=== PATIENT | male | born 1945 | race Caucasian/White ===

== ENCOUNTER → 2021-02-21 | Outpatient (CLI) | payer MEDICARE, BC, OTHER ==
--- NOTE | 2021-02-21 11:16 | REP ---
INDICATION: COMPLEX RENAL CYST. COMPARISON: Comparison sonography is been retrieved and is reviewed dated October 11, 2020 from an outside hospital.. TECHNIQUE: Urinary tract sonography. FINDINGS: Scanning at the level of the urinary bladder shows no abnormality. Emptying ureteral jets are observed bilaterally on color Doppler interrogation of the bladder lumen. Renal cortical echogenicity pattern is normal bilaterally and contours are smooth. There is a complex mid to upper pole parapelvic cyst in the right kidney which appears subjectively unchanged when compared with the outside sonographic images from October 11, 2020. This measures 3.8 x 3.7 x 3.7 cm and contains a thin internal septation an a slightly lobulated contour. No soft tissue component is seen. No mass lesion is seen. No renal calculus is observed. There is no evidence of hydronephrosis on either side.. The right kidney measures 11.5 x 6.2 x 5.8 cm. Left renal dimensions are 11.9 x 5.3 x 6.0 cm. IMPRESSION: Slightly complex parapelvic cyst mid to upper pole right kidney measuring 3.8 cm in greatest diameter unchanged from outside comparison sonography. The cyst contains a septation which is thin. Minimally complex. Follow-up sonography suggested 6-12 months.. <Electronically signed by Cecil Akers > 02/21/21 [id number]
[2021-02-22 23:06] LABS: PSA % FREE 16.3 % (.); PSA FREE 0.67 ng/mL; PSA TOTAL 4.1 ng/mL (0.0-4.0)
== END ==
LOC: M LAB 09:46
PROVIDERS: ATTEND Urology
DX: R97.20 Elevated prostate specific antigen [PSA] (principal)

== ENCOUNTER → 2021-08-27 | Outpatient (CLI) | payer MEDICARE, BC, OTHER ==
--- NOTE | 2021-08-27 12:16 | REP ---
INDICATION: COMPLEX RENAL CYST. COMPARISON: 02/21/2021 TECHNIQUE: Real-time sonographic evaluation of the kidneys with Doppler FINDINGS: Multiple ultrasonographic images of the right kidney show the right kidney to measure 10.6 x 7 x 5.9 cm. The renal cortical echotexture is unremarkable. There are no solid masses. In the mid polar region there is a 4.1 x 3.4 x 3.6 cm sized complex septated cystic structure the septation of which is much better identified today. There is good corticomedullary differentiation. There is no hydronephrosis. There are no perinephric fluid collections. Multiple ultrasonographic images of the left kidney show the left kidney to measure 11 x 5.7 x 5.6 cm. The renal cortical echotexture is unremarkable. There are no masses. There is good corticomedullary differentiation. There is no hydronephrosis. There are no perinephric fluid collections. Note is made of cholelithiasis which was present on the prior outside abdominal ultrasound of 10/11/2020 IMPRESSION: Complex appearing right renal cyst as described above. The septation much more readily apparent today. Since this represents a change or even potential change from the prior exam pre and postcontrast enhanced renal CT is in order for further evaluation. <Electronically signed by Antonio Chau > 08/27/21 [id number]
== END ==
LOC: M RAD 09:48
PROVIDERS: ATTEND Urology
DX: N28.1 Cyst of kidney, acquired (principal)

== ENCOUNTER → 2021-09-02 | Outpatient (CLI) | payer MEDICARE, BC, OTHER ==
[2021-09-03 23:11] LABS: PSA % FREE 14.3 % (.); PSA FREE 0.63 ng/mL; PSA TOTAL 4.4 ng/mL (0.0-4.0)
== END ==
LOC: M LAB 06:18
PROVIDERS: ATTEND Urology
DX: R97.20 Elevated prostate specific antigen [PSA] (principal)